=== PATIENT | male | born 1960 | race Caucasian/White ===

== ENCOUNTER 2019-08-11 11:39 | Day surgery (SDC) | payer BC ==
[~2019-08-11] VITALS: Ht 188 cm; Wt 136.0 kg
[~2019-08-11 11:39] MED LIST: ACETAMINOPHEN 325 MG TABLET PO PRN; EPHEDRINE 50 MG/ML, 1ML IVPush PRN; FENTANYL PF 100 MCG/2ML IV PRN; HYDROmorphone 1 MG/ML, 1ML INJ IVPush PRN; LABETALOL 5MG/ML, 20ML IV PRN; MEPERIDINE/PF 25MG/0.5ML IVPush PRN; ONDANSETRON 2MG/ML, 2ML IVPush PRN; OXYcodone 5 MG/5 ML ORAL.SOL UDC PO PRN; PLEASE ENTER ALLERGIES MC SCH; PLEASE ENTER HEIGHT AND WEIGHT MC SCH; PROMETHAZINE 25 MG/ML, 1ML IVPush PRN; hydrALAzine 20 MG/ML, 1ML IV PRN
[2019-08-11] MEDS ORDERED: SODIUM CHLORIDE 0.9% 1,000 ML IV ONE (13:30)
[2019-08-11] MEDS ORDERED: QUET200T PO (13:32)
[2019-08-11] MEDS ORDERED: LAMO200T6 PO (13:35)
[2019-08-11] MEDS ORDERED: BUPR300T94 PO (13:35)
[2019-08-11] MEDS ORDERED: LISI-170 PO (13:35)
[2019-08-11] MEDS ORDERED: MIDAZOLAM 1 MG/ML, 2ML ONE (13:38)
[2019-08-11] MEDS ORDERED: FENTANYL PF 250 MCG/5ML ONE (13:38)
[2019-08-11 13:43] VITALS: BP 157/118
[2019-08-11] MEDS ORDERED: DEXAMETHASONE 4 MG/ML, 1ML ONE ×2 (13:56→14:05)
[2019-08-11] MEDS ORDERED: LIDOCAINE 2%, 20ML ONE (13:57)
[2019-08-11] MEDS ORDERED: PHENYLEPHRINE 10 MG/ML ONE (14:04)
[2019-08-11] MEDS ORDERED: SUCCINYLCHOLINE 20 MG/ML, 10ML ONE (14:05)
[2019-08-11] MEDS ORDERED: PROPOFOL 10 MG/ML, 20ML ONE (14:05)
[2019-08-11] MEDS ORDERED: ONDANSETRON 2MG/ML, 2ML ONE (14:05)
[2019-08-11] MEDS ORDERED: SUGAMMADEX 200 MG/2 ML IVPush ONE (14:05)
[2019-08-11] MEDS ORDERED: ROCURONIUM 10MG/ML,5ML ONE (14:05)
[2019-08-11] MEDS ORDERED: APIX5TAB4 PO (16:03)
[2019-08-11 19:42] VITALS: BP 161/112
== END 2019-08-11 20:25 | disposition home or self-care (01) ==
LOC: CACL 11:39 → 5SO 17:08 → CACL 20:25
PROVIDERS: ATTEND Internal Medicine Clinical Cardiac Electrophysiology
DX: I48.92 Unspecified atrial flutter (principal); Z11.59 Encounter for screening for other viral diseases; I34.0 Nonrheumatic mitral (valve) insufficiency; I70.0 Atherosclerosis of aorta; I10 Essential (primary) hypertension; Z79.899 Other long term (current) drug therapy
CPT/HCPCS: 93312; 93321; 93325; 93613; 93621; 93653; C1730; C1732; C1766; C1894; J0330; J1100; J2250; J2370; J2405; J2704; J3010; U0001; G0378